=== PATIENT | male | born 1995 | race American Indian/Alaskan Native ===

== ENCOUNTER 2020-09-29 01:58 | Emergency (ER) | payer SELFPAY ==
[2020-09-29] MEDS ORDERED: SODIUM CHLORIDE 0.9% 1000 ML 1,000 ML ONE (02:19)
[2020-09-29] MEDS ORDERED: ONDANSETRON 4 MG/2 ML INJ ONE (02:19)
[2020-09-29] MEDS ORDERED: HYDROmorphone 1 MG/1 ML INJ ONE (02:19)
[2020-09-29] MEDS ORDERED: HYDROmorphone 1 MG/1 ML INJ IV ONE (02:26)
[2020-09-29] MEDS ORDERED: ONDANSETRON 4 MG/2 ML INJ IV ONE (02:26)
[2020-09-29] MEDS ORDERED: SODIUM CHLORIDE 0.9% 1000 ML 1,000 ML IV ONE (02:26)
--- NOTE | 2020-09-29 02:30 | Emergency Department Report ---
ED Abdominal Pain HPI - General Chief Complaint: Abdominal Pain Stated Complaint: RIGHT FLANK PAIN Time Seen by Provider: 09/29/20 02:26 Source: patient, EMS Mode of arrival: Ambulatory Limitations: No Limitations - History of Present Illness Initial Comments: Patient is a 24-year-old male that presents emergency room with complaints of severe right flank pain. Patient states it started 2 hours ago. Patient states he is having nausea vomiting. Patient dates he has vomited twice. Patient states his pain is a 10 out of 10. Patient states it is nonradiating. Patient states that the pain is worsening. Patient states is better with rest and worse with exertion and movement. Patient states he is never had a kidney stone. Patient denies dysuria. Patient denies fever. Patient denies chills. Patient denies chest pain. Patient denies shortness of breath. Patient denies recent travel. Patient denies recent international travel. Patient denies exposure to the novel coronavirus. Patient denies sick contacts. Patient denies fever and chills. Patient denies cough. Patient denies diarrhea. Patient denies coming in contact with anybody with symptoms of the novel coronavirus. MD Complaint: abdominal pain -: Sudden Location: R flank Radiation: none Migration to: no migration Severity: severe Severity scale (0 -10): 10 Quality: stabbing Consistency: constant Improves With: rest Worsens With: movement Associated Symptoms: nausea, vomiting. denies: diarrhea, fever, chills, constipation, dysuria, hematemesis, hematochezia, melena, hematuria, anorexia, syncope - Related Data Previous Rx's Medication Instructions Recorded Last Taken Type HYDROcodone/APAP 5-325 [Burwell 1 each PO Q4HR PRN #12 tablet 09/29/20 Unknown Rx 5/325] Ondansetron [Zofran Odt] 4 mg PO Q6HR PRN #12 tab.rapdis 09/29/20 Unknown Rx Sulfamethoxazole/Trimethoprim 1 each PO BID 10 Days #20 tablet 09/29/20 Unknown Rx [Bactrim DS TAB] Allergies Allergy/AdvReac Type Severity Reaction Status Date / Time No Known Allergies Allergy Unverified 09/29/20 02:02 ED Review of Systems ROS: Stated complaint: RIGHT FLANK PAIN Other details as noted in HPI Constitutional: denies: chills, fever Eyes: denies: eye pain, eye discharge, vision change ENT: denies: ear pain, throat pain Respiratory: denies: cough, shortness of breath, wheezing Cardiovascular: denies: chest pain, palpitations Endocrine: no symptoms reported Gastrointestinal: as per HPI, nausea, vomiting. denies: diarrhea Genitourinary: denies: urgency, dysuria Musculoskeletal: denies: back pain, joint swelling, arthralgia Skin: denies: rash, lesions Neurological: denies: headache, weakness, paresthesias Psychiatric: denies: anxiety, depression Hematological/Lymphatic: denies: easy bleeding, easy bruising ED Past Medical Hx - Past Medical History Previous Medical History?: Yes Additional medical history: Short Bowel Syndrome - Surgical History Past Surgical History?: No - Family History Family history: no significant - Social History Smoking Status: Never Smoker Substance Use Type: None - Medications Home Medications: Home Medications Medication Instructions Recorded Confirmed Last Taken Type HYDROcodone/APAP 5-325 [Burwell 1 each PO Q4HR PRN #12 tablet 09/29/20 Unknown Rx 5/325] Ondansetron [Zofran Odt] 4 mg PO Q6HR PRN #12 tab.rapdis 09/29/20 Unknown Rx Sulfamethoxazole/Trimethoprim 1 each PO BID 10 Days #20 tablet 09/29/20 Unknown Rx [Bactrim DS TAB] ED Physical Exam - General Limitations: No Limitations General appearance: alert, in no apparent distress - Head Head exam: Present: atraumatic, normocephalic - Eye Eye exam: Present: normal appearance - ENT ENT exam: Present: mucous membranes moist - Neck Neck exam: Present: normal inspection - Respiratory Respiratory exam: Present: normal lung sounds bilaterally. Absent: respiratory distress - Cardiovascular Cardiovascular Exam: Present: regular rate, normal rhythm. Absent: systolic murmur, diastolic murmur, rubs, gallop - GI/Abdominal GI/Abdominal exam: Present: soft, tenderness (Right flank tenderness), normal bowel sounds - Rectal Rectal exam: Present: deferred - Extremities Exam Extremities exam: Present: normal inspection - Back Exam Back exam: Present: normal inspection - Neurological Exam Neurological exam: Present: alert, oriented X3 - Psychiatric Psychiatric exam: Present: normal affect, normal mood - Skin Skin exam: Present: warm, dry, intact, normal color. Absent: rash ED Course Vital Signs 09/29/20 09/29/20 09/29/20 02:00 02:25 02:30 Temperature 97.8 F Pulse Rate 83 Respiratory 18 Rate Blood Pressure 133/70 146/91 O2 Sat by Pulse 98 97 99 Oximetry 09/29/20 09/29/20 09/29/20 02:45 03:00 03:15 Temperature Pulse Rate Respiratory Rate Blood Pressure 146/91 153/87 146/91 O2 Sat by Pulse 99 100 100 Oximetry 09/29/20 09/29/20 09/29/20 03:39 03:45 04:00 Temperature Pulse Rate Respiratory Rate Blood Pressure 159/100 162/94 O2 Sat by Pulse 99 99 98 Oximetry 09/29/20 09/29/20 09/29/20 04:15 04:31 04:45 Temperature Pulse Rate Respiratory Rate Blood Pressure 162/94 135/71 135/71 O2 Sat by Pulse 99 98 99 Oximetry 09/29/20 09/29/20 09/29/20 05:01 05:15 05:30 Temperature Pulse Rate Respiratory Rate Blood Pressure 130/67 130/67 127/78 O2 Sat by Pulse 100 82 L 100 Oximetry 09/29/20 05:45 Temperature Pulse Rate Respiratory Rate Blood Pressure 127/78 O2 Sat by Pulse 99 Oximetry - Reevaluation(s) Reevaluation #1: Patient states he is feeling much better. Patient states his pain is now a 5 out of 10. 09/29/20 03:24 Reevaluation #2: Patient states his pain is better. Patient tolerated p.o. intake and patient able to take Flomax p.o. Patient given Toradol IV. Patient states he received a urine sample symptoms again. 09/29/20 04:24 Reevaluation #3: I discussed all results and clinical findings with patient. I discussed plan of care with patient. Patient agrees with plan of care. Patient is stable for discharge. Patient will be discharged home. Patient given discharge inst ructions. Patient voiced understanding of discharge instructions. 09/29/20 06:14 ED Medical Decision Making - Lab Data Result diagrams: 09/29/20 02:25 09/29/20 02:25 - Radiology Data Radiology results: report reviewed CT ABDOMEN AND PELVIS WITHOUT CONTRAST INDICATION / CLINICAL INFORMATION: RENAL STONE PROTOCOL! Pt complains of RIGHT sided flank pain.. TECHNIQUE: Axial CT images were obtained through the abdomen and pelvis without IV contrast. All CT scans at this location are performed using CT dose reduction for ALARA by means of automated exposure control. COMPARISON: None available. FINDINGS: LOWER CHEST: No significant abnormality. LIVER: No significant abnormality. GALLBLADDER: No significant abnormality. BILE DUCTS: No significant abnormality. PANCREAS: No significant abnormality. SPLEEN: No significant abnormality. ADRENALS: No significant abnormality. RIGHT KIDNEY and URETER: Moderate to severe right hydroureteronephrosis secondary to a 2 mm calculus at the right ureterovesical junction.. LEFT KIDNEY and URETER: No significant abnormality. STOMACH and SMALL BOWEL: No significant abnormality. COLON: No significant abnormality. APPENDIX: No significant abnormality. PERITONEUM: No free fluid. No free air. No fluid collection. LYMPH NODES: No significant adenopathy. AORTA and ARTERIES: No significant abnormality. IVC and VEINS: No significant abnormality. URINARY BLADDER: No significant abnormality. REPRODUCTIVE ORGANS: No significant abnormality. ADDITIONAL FINDINGS: None. SKELETAL SYSTEM: No significant abnormality. IMPRESSION: Focal 2 mm calculus at the right ureterovesical junction causing moderate right hydronephrosis - Medical Decision Making Patient is a 24-year-old male that presents emergency room with right flank pain. Patient had a CT done which shows a 2 mm kidney stone with hydronephrosis. Patient given fluids, antiemetics, pain meds and his symptoms improved. Patient then given Toradol and Flomax after CT returned. Patient's labs are essentially unremarkable except for hyperglycemia and UTI and hematuria. Patient ambulatory in the ER. Patient tolerated p.o. intake. Patient's essentially pain-free prior to discharge. Patient responded well to treatment. Patient stable for discharge. Patient discharged home. - Differential Diagnosis Kidney stone, flank pain, nausea, vomiting, dehydration.UTI Critical care attestation.: If time is entered above; I have spent that time in minutes in the direct care of this critically ill patient, excluding procedure time. ED Disposition Clinical Impression: Kidney stone on right side, Right flank pain, Hypokalemia, Hyperglycemia Hydronephrosis Qualifiers: Hydronephrosis type: with renal calculous obstruction Qualified Code(s): N13.2 - Hydronephrosis with renal and ureteral calculous obstruction Nausea & vomiting Qualifiers: Vomiting type: unspecified Vomiting Intractability: non-intractable Qualified Code(s): R11.2 - Nausea with vomiting, unspecified UTI (urinary tract infection) Qualifiers: Urinary tract infection type: acute cystitis Hematuria presence: with hematuria Qualified Code(s): N30.01 - Acute cystitis with hematuria Disposition: TO HOME OR SELFCARE Is pt being admited?: No Does the pt Need Aspirin: No Condition: Stable Instructions: Nausea, Adult, Hypokalemia, Hyperglycemia, Renal Colic, Urinary Tract Infection, Adult, [id number], Nausea and Vomiting, Adult, Flank Pain, Adult, Potassium Content of Foods Additional Instructions: Patient to follow-up with primary care in 2 to 3 days. Patient to follow-up with urologist in 2 to 3 days. Patient to rest. Patient to increase water. Patient to avoid strenuous exercise or heavy lifting until cleared by neurologist. Patient to take Tylenol or ibuprofen as needed for pain. Patient to take meds as directed. Patient to return to the ER if condition worsens, changes or new symptoms arise. Prescriptions: Sulfamethoxazole/Trimethoprim [Bactrim DS TAB] 1 each PO BID 10 Days #20 tablet HYDROcodone/APAP 5-325 [Burwell 5/325] 1 each PO Q4HR PRN #12 tablet PRN Reason: Pain Ondansetron [Zofran Odt] 4 mg PO Q6HR PRN #12 tab.rapdis PRN Reason: Nausea And Vomiting Referrals: NOEL HERNANDEZ MD [Primary Care Provider] - 2-3 Days AMANDA MOLINA MD [Staff Physician] - 2-3 Days Time of Disposition: 06:13
[2020-09-29 02:35] LABS: Basophils % (Auto) 0.3 % (0.0-1.8); Eosinophils # (Auto) 0.1 K/mm3 (0.0-0.4); Eosinophils % (Auto) 0.6 % (0.0-4.3); Hematocrit 42.3 % (35.5-45.6); Hemoglobin 14.6 gm/dl (11.8-15.2); Lymphocytes # (Auto) 3.1 K/mm3 (1.2-5.4); Lymphocytes % (Auto) 22.9 % (13.4-35.0); Mean Corpuscular HGB Conc 35 % (32-34); Mean Corpuscular Volume 94 fl (84-94); Monocytes # (Auto) 0.8 K/mm3 (0.0-0.8); Monocytes % (Auto) 6.3 % (0.0-7.3); Platelet Count 248 K/mm3 (140-440); Red Blood Count 4.49 M/mm3 (3.65-5.03); Red Cell Distribution Width 12.6 % (13.2-15.2)
[2020-09-29 02:57] LABS: Alanine Aminotransferase 13 units/L (7-56); Albumin 4.8 g/dL (3.9-5); BUN/Creatinine Ratio 14; Blood Urea Nitrogen 17 mg/dL (9-20); Calcium 9.5 mg/dL (8.4-10.2); Hemolysis Index 13
--- NOTE | 2020-09-29 04:06 | Cat Scan Report ---
CT ABDOMEN AND PELVIS WITHOUT CONTRAST INDICATION / CLINICAL INFORMATION: RENAL STONE PROTOCOL! Pt complains of RIGHT sided flank pain.. TECHNIQUE: Axial CT images were obtained through the abdomen and pelvis without IV contrast. All CT scans at [facility] location are performed using CT dose reduction for ALARA by means of automated exposure control. COMPARISON: None available. FINDINGS: LOWER CHEST: No significant abnormality. LIVER: No significant abnormality. GALLBLADDER: No significant abnormality. BILE DUCTS: No significant abnormality. PANCREAS: No significant abnormality. SPLEEN: No significant abnormality. ADRENALS: No significant abnormality. RIGHT KIDNEY and URETER: Moderate to severe right hydroureteronephrosis secondary to a 2 mm calculus at the right ureterovesical junction.. LEFT KIDNEY and URETER: No significant abnormality. STOMACH and SMALL BOWEL: No significant abnormality. COLON: No significant abnormality. APPENDIX: No significant abnormality. PERITONEUM: No free fluid. No free air. No fluid collection. LYMPH NODES: No significant adenopathy. AORTA and ARTERIES: No significant abnormality. IVC and VEINS: No significant abnormality. URINARY BLADDER: No significant abnormality. REPRODUCTIVE ORGANS: No significant abnormality. ADDITIONAL FINDINGS: None. SKELETAL SYSTEM: No significant abnormality. IMPRESSION: Focal 2 mm calculus at the right ureterovesical junction causing moderate right hydronephrosis Signer Name: Andres Lozada MD Signed: 09/29/2020 4:01 AM Workstation Name: [id number]
[2020-09-29] MEDS ORDERED: KETOROLAC 30 MG/1 ML INJ IV ONE (04:12)
[2020-09-29] MEDS ORDERED: TAMSULOSIN 0.4 MG CAP PO ONE (04:42)
[2020-09-29 05:55] VITALS: BP 127/78
[2020-09-29 05:59] LABS: Bilirubin,Urine NEG (Negative); Blood,Urine MOD (Negative); Color,Urine Yellow (Yellow); Mucus,Urine 1+ /HPF; Urobilinogen,Urine < 2.0 mg/dL (<2.0)
== END 2020-09-29 06:42 | disposition home or self-care (01) ==
LOC: ED 01:58
DX: N20.0 Calculus of kidney (principal); E87.6 Hypokalemia; N13.30 Unspecified hydronephrosis; N39.0 Urinary tract infection, site not specified; R73.9 Hyperglycemia, unspecified
CPT/HCPCS: 36415; 74176; 80053; 81001; 85025; 87086; 96361; 96374; 96375; 99284; J1170; J1885; J2405; J7030